=== PATIENT | male | born 1945 | race Caucasian/White ===

== ENCOUNTER → 2017-12-31 | Outpatient (CLI) | payer MEDICARE, OTHER ==
[~2017-12-31] MED LIST: AMLODIPINE BESYL5 M1 PO; ANCEF IV; ASA81BEC PO; AUGMENTIN 500-1 EACH PO; BACTRIM DS TAB1 EACH PO; BRILINTA90 MG PO; CEFAZOLIN 1GM VI1 G1 IV; CEFAZOLIN2 GM/50 ML IV; CIPROFLOXACIN500 M1 PO; EYE DROPS15 M1 OPHTHALMIC; FLONASE NASAL; GLIPIZIDE ER2.5 MG; GLUCOPHAGE1000 MG PO; GLUCOPHAGE500 MG PO; GLUCOTROL10 MG PO; GLUCOTROL5 MG PO; IBUPROFEN 800800 M1 PO; IMDUR 30 MG TAB30 M1 PO; LASIX 80 MG TAB80 MG PO; LEVAQUIN 750 M750 MG PO; LIPITOR 20 MG T20 M1 PO; LIPITOR40 MG PO; LISINOPRIL-HCT1 EACH PO; METFORMIN HCL500 MG; METFORMIN HCL500 MG PO; NAFCILLIN 2 GM A2 G1 IVPB; NORCO 5-325 TA1 EACH PO; PLAVIX 75 MG TA75 M1 PO; PREDNISONE 10 M10 MG PO; SULFA DRUG; TESSALON200 MG PO; TIMOLOL MA0.5 %/5 M2 OPHTHALMIC; TOPROL XL100 MG; TOPROL XL25 MG PO; TRAMADOL 50 MG50 MG PO; TYLENOL325 MG PO; VANCOMYCIN1.25 GM/21 IV; ZESTORETIC 20-1 EAC2 PO
[2017-12-31 12:14] VITALS: BP 159/65
[2017-12-31 12:35] VITALS: BP 151/76
[2017-12-31 12:56] VITALS: BP 152/68
[2017-12-31 14:10] VITALS: BP 159/76
[2017-12-31 15:04] VITALS: BP 144/72
== END | disposition home or self-care (01) ==
LOC: M.RAD 12-25 10:28
DX: M54.5 Low back pain (principal); E11.9 Type 2 diabetes mellitus without complications; Z79.82 Long term (current) use of aspirin; Z79.899 Other long term (current) drug therapy

== ENCOUNTER → 2018-12-07 | Outpatient (CLI) | payer MEDICARE, OTHER | LOC: M.WC 09:00 | DX: E11.622 Type 2 diabetes mellitus with other skin ulcer (principal); L97.811 Non-pressure chronic ulcer of other part of right lower leg limited to breakdown of skin; E11.22 Type 2 diabetes mellitus with diabetic chronic kidney disease; I12.9 Hypertensive chronic kidney disease with stage 1 through stage 4 chronic kidney disease, or unspecified chronic kidney disease; N18.9 Chronic kidney disease, unspecified; E11.51 Type 2 diabetes mellitus with diabetic peripheral angiopathy without gangrene; E11.39 Type 2 diabetes mellitus with other diabetic ophthalmic complication; H40.9 Unspecified glaucoma; E78.5 Hyperlipidemia, unspecified; I87.2 Venous insufficiency (chronic) (peripheral); I89.0 Lymphedema, not elsewhere classified; Z79.82 Long term (current) use of aspirin ==

== ENCOUNTER → 2018-12-14 | Outpatient (CLI) | payer MEDICARE, OTHER | LOC: M.WC 05:45 | DX: E11.622 Type 2 diabetes mellitus with other skin ulcer (principal); L97.811 Non-pressure chronic ulcer of other part of right lower leg limited to breakdown of skin; E11.51 Type 2 diabetes mellitus with diabetic peripheral angiopathy without gangrene; E11.39 Type 2 diabetes mellitus with other diabetic ophthalmic complication; H40.9 Unspecified glaucoma; E11.22 Type 2 diabetes mellitus with diabetic chronic kidney disease; I12.9 Hypertensive chronic kidney disease with stage 1 through stage 4 chronic kidney disease, or unspecified chronic kidney disease; N18.9 Chronic kidney disease, unspecified; E78.5 Hyperlipidemia, unspecified; I87.2 Venous insufficiency (chronic) (peripheral); I89.0 Lymphedema, not elsewhere classified ==

== ENCOUNTER 2019-09-14 11:05 | Inpatient (IN) | payer MEDICARE, OTHER ==
[~2019-09-14] VITALS: Ht 180.3 cm; Wt 125.4 kg
[2019-09-14 11:12] VITALS: BP 156/75
[2019-09-14 11:41] LABS: ABSOLUTE EOSINOPHILS 0.1 thou/uL (0.0-0.7); ABSOLUTE MONOCYTES 0.5 thou/uL (0.0-1.2); ABSOLUTE NEUTROPHILS 7.3 thou/uL (1.6-8.1); BASOPHILS 0.5 %; EOSINOPHILS 1.3 %; HEMOGLOBIN 9.9 gm/dL (14.0-18.0); LYMPHOCYTES 11.3 %; MCH 28.6 pg (26.0-34.0); MCV 86.7 fL (80.0-100.0); MONOCYTES 5.3 %; MPV 8.4 fl. (7.2-11.1); NUCLEATED RBCS 0 /100WBC; PLATELET COUNT* 315 thou/uL (150-400); POLYS 81.6 %; RBC 3.46 mil/uL (4.50-6.00); RDW-CV 15.6 % (10.5-14.5); WBC 8.9 thou/uL (4.0-11.0)
[2019-09-14 11:51] LABS: CALCIUM 8.6 mg/dL (8.5-10.1); CREATININE 1.2 mg/dL (0.6-1.3); INR 1.2; PROTIME 12.2 Seconds (9.20-11.50)
[2019-09-14 12:05] LABS: CK-MB MASS 2.9 ng/mL (<0.5-3.6); MAGNESIUM 1.5 mg/dL (1.8-2.4); TOTAL BILIRUBIN 0.6 mg/dL (<0.1-1.0); TOTAL PROTEIN 7.3 g/dL (6.4-8.2)
[2019-09-14 13:57] VITALS: BP 160/90
--- NOTE | 2019-09-14 14:43 | NUR ---
VSS, ASSUMED CARE OF PT FROM ER, ASSESSMENT PERFORMED AND CHARTED, FALL PRECAUTIONS IN PLACE AND CALL LIGHT IN REACH, PT IS A&O4 AND UP WITH MAX 2 ASSIST, PT IS TRACING SR ON THE MONITOR, PT DENIES ANY PAIN IS N 2L NC AND IS SOA, PT GOAL IS TO DECREASE SWELLING AND IMPROVE BREATHING, WILL FOLLOW WITH PLAN OF CARE.
[2019-09-14 14:46] VITALS: BP 145/64
--- NOTE | 2019-09-14 15:47 | EKG ---
[place] [address] ELECTROCARDIOGRAM REPORT Name: VÍCTOR MCFADDEN Room: [address] ADM IN M.R.#: [id number] Admission: 09/14/19 Attend Phys: Cl Trammell MD Discharge: Date of : 49 Report #: [id number] THIS REPORT FOR: //name// [facility] ED Test Date: 2019-09-14 Test Time: 11:17:08 Pat Name: VÍCTOR MCFADDEN Department: Room: [facility] Gender: M Deputy Sheriff/Investigator: : 1945 Requested By: Morales Harrell Order Number: [id number] MD: Juan R Alcala Measurements Intervals Red Bud Rate: 84 P: -14 ND: 168 QRS: -27 QRSD: 113 T: 65 QT: 404 QTc: 478 Interpretive Statements Sinus rhythm Atrial premature complexes Low voltage, precordial leads Probable anteroseptal infarct, old Baseline wander in lead(s) V1 Compared to ECG 08/08/2017 04:07:33 Atrial premature complex(es) now present Myocardial infarct finding now present Electronically Signed On 09-14-2019 15:47:22 BROILER CHEF OR COOK by Juan R Alcala [email or web address] <ELECTRONICALLY SIGNED> By: Juan R Alcala MD, FACC 09/14/19 1547 [id number] Juan R Alcala MD, [facility] /EPI
[2019-09-14 20:00] VITALS: BP 123/60
[2019-09-15] VITALS: BP 100/52
[2019-09-15 04:00] VITALS: BP 101/60
[2019-09-15 04:36] LABS: ABSOLUTE BASOPHILS 0.1 thou/uL (0.0-0.2); ABSOLUTE EOSINOPHILS 0.4 thou/uL (0.0-0.7); ABSOLUTE LYMPHOCYTES 1.5 thou/uL (0.8-5.3); ABSOLUTE MONOCYTES 0.6 thou/uL (0.0-1.2); ABSOLUTE NEUTROPHILS 5.3 thou/uL (1.6-8.1); BASOPHILS 0.9 %; EOSINOPHILS 4.5 %; HEMATOCRIT 26.3 % (42.0-52.0); HEMOGLOBIN 8.6 gm/dL (14.0-18.0); LYMPHOCYTES 19.3 %; MCH 28.2 pg (26.0-34.0); MCHC 32.6 g/dL (28.0-37.0); MCV 86.7 fL (80.0-100.0); NUCLEATED RBCS 0 /100WBC; PLATELET COUNT* 284 thou/uL (150-400); POLYS 67.3 %; RBC 3.04 mil/uL (4.50-6.00); RDW-CV 15.5 % (10.5-14.5); WBC 7.9 thou/uL (4.0-11.0)
[2019-09-15 04:48] LABS: CALCIUM 8.3 mg/dL (8.5-10.1); CREATININE 1.1 mg/dL (0.6-1.3); POTASSIUM 4.1 mmol/L (3.5-5.1)
--- NOTE | 2019-09-15 07:42 | NUR ---
PT CARE ASSUMED AT 1930. SAT MAINTAINED IN O2. ALERT AND ORIENTED X4. DENIES PAIN. REDNESS ON BOTTON, PICTURE TAKEN AND PLACED IN CHART. CALL LIGHT WITHIN REACH AND BED IN LOW POSITION. HOURLY ROUNDING DONE FOR PT SAFETY.
[2019-09-15 08:00] VITALS: BP 128/72
--- NOTE | 2019-09-15 08:37 | 2DMMODE ---
[place] [address] 2 D/M-MODE ECHOCARDIOGRAM Name: VÍCTOR MCFADDEN Room: [address] IN [facility]#: [id number] Admission: 09/14/19 Attend Phys: Cl Trammell, Discharge: Date of : 49 Date of Service: 09/15/19 0837 Report #: [id number] THIS REPORT FOR: //name// APPROVED REPORT Study performed: 09/14/2019 15:39:25 EXAM: Comprehensive 2D, Doppler, and color-flow Echocardiogram Patient Location: In-Patient Room #: [facility] Status: routine BSA: 2.43 HR: 80 bpm BP: 145/64 mmHg Rhythm: NSR Other Information Study Quality: Good Indications Congenital Heart Disease 2D Dimensions IVSd: 12.33 (7-11mm) LVOT Diam: 20.40 (18-24mm) LVDd: 58.99 mm PWd: 9.91 (7-11mm) Ascending Ao: 35.43 (22-36mm) LVDs: 39.87 (25-40mm) Aortic Root: 36.37 mm Volumes Left Atrial Volume (Systole) LA ESV Index: 26.90 mL/m2 Aortic Valve AoV Peak Obi.: 1.49 m/s AO Peak Gr.: 8.89 mmHg LVOT Max P.77 mmHg AO Mean Gr.: 5.15 mmHg LVOT Mean P.76 mmHg LVOT Max V: 0.97 m/s AO V2 VTI: 26.91 cm LVOT Mean V: 0.60 m/s BREANN (VTI): 2.30 cm2 LVOT V1 VTI: 18.92 cm Mitral Valve E/A Ratio: 1.25 MV Decel. Time: 149.18 ms MV E Max Obi.: 1.05 m/[place] [address] 2 D/M-MODE ECHOCARDIOGRAM Name: VÍCTOR MCFADDEN Room: [address] [place] .R.#: [id number] Admission: 09/14/19 Attend Phys: Cl Trammell, Discharge: Date of : 49 Date of Service: 09/15/19 0837 Report #: [id number] MV PHT: 43.26 ms MVA (PHT): 5.09 cm2 TDI E/Lateral E': 10.50 E/Medial E': 11.67 Medial E' Obi.: 0.09 m/s Lateral E' Obi.: 0.10 m/s Pulmonary Valve PV Peak Obi.: 0.83 m/s PV Peak Gr.: 2.74 mmHg Tricuspid Valve RAP Estimate: 5.00 mmHg TR Peak Gr.: 37.65 mmHg RVSP: 42.00 mmHg PA Pressure: 42.00 mmHg Left Ventricle Left ventricle is mildly dilated. There is akinesis of the distal septum anteroseptal and anterior wall as well as apex. There is normal left ventricular wall thickness. Left ventricular systolic function is moderately decreased. LVEF is 35-40%. Transmitral Doppler flow pattern suggests restrictive physiology. Right Ventricle The right ventricle is normal size. The right ventricular systolic function is normal. Atria Left atrium is mildly dilated. The right atrium size is normal. Aortic Valve Mild aortic valve sclerosis. No aortic regurgitation is present. There is no aortic valvular stenosis. Mitral Valve The mitral valve is normal in structure. Mild mitral regurgitation. No evidence of mitral valve stenosis. Tricuspid Valve The tricuspid valve is normal in structure. Mild tricuspid regurgitation. The RVSP is 40-45 mmHg. Pulmonic Valve The pulmonary valve is normal in structure. There is no pulmonic [place] [address] 2 D/M-MODE ECHOCARDIOGRAM Name: VÍCTOR MCFADDEN Room: [address] [place] [facility]#: [id number] Admission: 09/14/19 Attend Phys: Cl Trammell, Discharge: Date of : 49 Date of Service: 09/15/19 0837 Report #: [id number] Great Vessels The aortic root is normal in size. IVC is normal in size and collapses >50% with inspiration. Pericardium There is no pericardial effusion. <Conclusion> Left ventricle is mildly dilated. There is normal left ventricular wall thickness. Left ventricular systolic function is moderately decreased. LVEF is 35-40%. Transmitral Doppler flow pattern suggests restrictive physiology. Left atrium is mildly dilated. Mild aortic valve sclerosis. There is no aortic valvular stenosis. Mild mitral regurgitation. Mild tricuspid regurgitation. The RVSP is 40-45 mmHg. <ELECTRONICALLY SIGNED> By: Andrea Laboy MD, FACC 09/15/19 0837 Andrea Laboy MD, FACC /INF
--- NOTE | 2019-09-15 10:27 | CON ---
[address] [address] CONSULTATION Name: VÍCTOR MCFADDEN Room: [address] [place] .R.#: [id number] Admission: 09/14/19 Attend Phys: Cl Trammell MD Discharge: Date of : 49 Report #: [id number] THIS REPORT FOR: //name// CC: Cl Lambrina [place] DATE OF SERVICE: 09/14/2019 CARDIOLOGY CONSULTATION The patient of Dr. Trammell. HISTORY OF PRESENT ILLNESS: The patient is a very pleasant 74-year-old male with known coronary artery disease, cardiomyopathy in that context with both systolic and diastolic dysfunction. He was recently seen by Dr. Canela who elected to add Aldactone to his regimen. This was misinterpreted as a substitution of Aldactone for his loop diuretic. Over the ensuing 2-3 weeks, there has been a gradual increase in lower extremity edema and marked notation of dyspnea on exertion. He denies any chest, neck, jaw or arm discomfort suggesting angina in the context of known coronary artery disease. The patient does have a number of underlying risk factors for coronary artery disease including hypertension, type 2 diabetes, peripheral vascular disease. He is status post prior percutaneous coronary intervention. OUTPATIENT MEDICATIONS: Have included aspirin, atorvastatin, glipizide, potassium chloride, metformin, metoprolol, timolol, and torsemide. SOCIAL HISTORY: The patient is a nonsmoker. FAMILY HISTORY: Not remarkable for premature coronary artery disease. REVIEW OF SYSTEMS: Remarkable for the following positives, generally notes a gradual weight gain of 20-30 pounds over the last 3 weeks with marked increase in lower extremity edema. PULMONARY: He notes dyspnea on moderate exertion, but not at rest. Remainder is unremarkable. PHYSICAL EXAMINATION: GENERAL: Demonstrates not acutely distressed, overweight elderly male. VITAL SIGNS: Blood pressure is 140/80, pulse rate is 74, and respirations are 18 per minute. NECK: Jugular venous pressure is difficult to ascertain. CHEST: Clear. CARDIAC: Reveals normal first and second heart sounds with a question of S[place] [address] CONSULTATION Name: VÍCTOR MCFADDEN Room: [address] [place] [facility]#: [id number] Admission: 09/14/19 Attend Phys: Cl Trammell MD Discharge: Date of : 49 Report #: [id number] ABDOMEN: Moderately obese. EXTREMITIES: Reveal [id number]-hn-bvsezrwgpi severe bilateral lower extremity edema. IMPRESSION: 1. Acute on chronic combined heart failure. 2. Coronary artery disease, status post prior percutaneous coronary intervention. 3. Type 2 diabetes. 4. Hypertension. 5. Peripheral vascular disease. 6. Status post prior percutaneous coronary intervention. RECOMMENDATIONS: 1. Agree with parenteral diuresis. We will continue Aldactone. 2. Echocardiogram regarding current global systolic function as well as diastolic function and volume status. We will follow with you. Thank you for allowing us to see the patient in cardiovascular assessment. <ELECTRONICALLY SIGNED> By: Juan R Alcala MD, FACC 09/15/19 1027 1520 [id number] Alcala MD, FACC /nt
--- NOTE | 2019-09-15 11:20 | NUR ---
Pt is A&O. Resides at home with his . Independent with ADLs, available to assist as needed. Pt uses a walker for mobility. Hx of HH. No hx of SNF. Pt is current at outpt rehab at [facility] post back surgery. Goal is home at sd.
[2019-09-15 12:11] VITALS: BP 154/56
--- NOTE | 2019-09-15 12:54 | NUR ---
Nutrition: Pt seen for high BMI. Admitted with SOA. H/o CHF, DM, foot ulcer, HTN. Pt sleeping soundly at visit. 2gm Na diet. Wt: 292#. Albumin 2.3, BG 208. Altered nutrition-related lab values R/T BG AEB labs. RD will add CHO count to diet order for better BG control. Low risk.
[2019-09-15 16:00] VITALS: BP 116/60
--- NOTE | 2019-09-15 19:00 | NUR ---
PT VSS, PT V-PACED ON TELE, A&OX4, PT ON BIPAP. SBA, VOIDS IN URINAL, HOURLY ROUNDING PERFORMED. POSSESSIONS AND CALL LIGHT WITHIN REACH. ACCUCHECKS
[2019-09-15 19:55] VITALS: BP 145/81
[2019-09-16] VITALS: BP 144/79
[2019-09-16 04:00] VITALS: BP 139/69
--- NOTE | 2019-09-16 04:52 | NUR ---
ASSUMED CARE OF PT AT 1900. PT IS ALERT AND ORIENTED. VSS. PERRLA. NO COMPLAINTS OF PAIN. PT IS INCONTINANT AT TIMES. PT HAS EDEMA IN HIS LOWER EXT. BLISTERS ON SHINS. PT IS IN SINUS RYTHM ON THE TELEMETRY. PT IS RESTING COMFORTABLY IN BED. RESPIRATIONS ARE EVEN AND NONLABORED. WILL CONTINUE TO MONITOR PT.
[2019-09-16 04:59] LABS: ABSOLUTE BASOPHILS 0.1 thou/uL (0.0-0.2); ABSOLUTE EOSINOPHILS 0.3 thou/uL (0.0-0.7); ABSOLUTE LYMPHOCYTES 1.5 thou/uL (0.8-5.3); ABSOLUTE MONOCYTES 0.7 thou/uL (0.0-1.2); ABSOLUTE NEUTROPHILS 6.1 thou/uL (1.6-8.1); BASOPHILS 0.7 %; EOSINOPHILS 3.9 %; HEMATOCRIT 30.7 % (42.0-52.0); HEMOGLOBIN 9.9 gm/dL (14.0-18.0); LYMPHOCYTES 17.1 %; MCH 28.2 pg (26.0-34.0); MCHC 32.3 g/dL (28.0-37.0); MCV 87.3 fL (80.0-100.0); MONOCYTES 7.6 %; MPV 8.7 fl. (7.2-11.1); NUCLEATED RBCS 0 /100WBC; PLATELET COUNT* 298 thou/uL (150-400); POLYS 70.7 %; RBC 3.52 mil/uL (4.50-6.00); RDW-CV 15.8 % (10.5-14.5); WBC 8.6 thou/uL (4.0-11.0)
[2019-09-16 05:52] LABS: CALCIUM 8.4 mg/dL (8.5-10.1); CREATININE 1.2 mg/dL (0.6-1.3); POTASSIUM 4.2 mmol/L (3.5-5.1)
[2019-09-16 08:00] VITALS: BP 139/81
[2019-09-16 11:33] VITALS: BP 136/71
[2019-09-16 16:56] VITALS: BP 153/86
[2019-09-16 19:25] VITALS: BP 135/66
--- NOTE | 2019-09-16 20:06 | NUR ---
PT VSS, PT SR ON TELE, A&OX4, PATIENT UW1 AND WALKER TO PIVOT TO CHAIR. USES URINAL TO VOID. HOURLY ROUNDING PERFORMED, POSSESSIONS AND CALL LIGHT WITHIN REACH.
[2019-09-17] VITALS: BP 149/73
[2019-09-17 04:00] VITALS: BP 135/62
[2019-09-17 05:24] LABS: ABSOLUTE BASOPHILS 0.1 thou/uL (0.0-0.2); ABSOLUTE EOSINOPHILS 0.3 thou/uL (0.0-0.7); ABSOLUTE LYMPHOCYTES 1.3 thou/uL (0.8-5.3); ABSOLUTE MONOCYTES 0.7 thou/uL (0.0-1.2); ABSOLUTE NEUTROPHILS 5.3 thou/uL (1.6-8.1); BASOPHILS 0.7 %; EOSINOPHILS 3.9 %; HEMATOCRIT 27.5 % (42.0-52.0); HEMOGLOBIN 9.2 gm/dL (14.0-18.0); LYMPHOCYTES 17.4 %; MCH 28.6 pg (26.0-34.0); MCHC 33.4 g/dL (28.0-37.0); MCV 85.8 fL (80.0-100.0); MONOCYTES 9.5 %; MPV 8.2 fl. (7.2-11.1); NUCLEATED RBCS 0 /100WBC; PLATELET COUNT* 292 thou/uL (150-400); POLYS 68.5 %; RBC 3.21 mil/uL (4.50-6.00); RDW-CV 15.8 % (10.5-14.5); WBC 7.7 thou/uL (4.0-11.0)
[2019-09-17 05:52] LABS: CALCIUM 8.4 mg/dL (8.5-10.1); CREATININE 1.2 mg/dL (0.6-1.3); POTASSIUM 4.1 mmol/L (3.5-5.1)
[2019-09-17 08:00] VITALS: BP 166/86
[2019-09-17 12:47] VITALS: BP 130/60
[2019-09-17 16:00] VITALS: BP 128/62
--- NOTE | 2019-09-17 19:17 | NUR ---
PT VSS, SR ON TELE, PT UP WITH 2, USES URINAL & BEDSIDE COMMODE, HOURLY ROUNDING PERFORMED, POSSESSIONS AND CALL LIGHT WITHIN REACH. A&OX4
[2019-09-17 20:38] VITALS: BP 143/70
[2019-09-18] VITALS: BP 150/76
[2019-09-18 04:00] VITALS: BP 133/67
--- NOTE | 2019-09-18 05:03 | NUR ---
PT IS ABLE TO COMMUNICATE HIS NEEDS TO STAFF EFECTIVELY. HE HAS DENIED THE NEED FOR PAIN MEDICATION UP TO THIS TIME. PT QUITE WEAK; REQUIRES TWO STAFF MEMBERS TO STAND AND MOVE WHILE USING WALKER ALSO; PT CONSULTED.
[2019-09-18 05:41] LABS: CALCIUM 7.8 mg/dL (8.5-10.1); CREATININE 1.3 mg/dL (0.6-1.3)
[2019-09-18 08:00] VITALS: BP 157/82
[2019-09-18 14:03] VITALS: BP 125/79
[2019-09-18 16:28] VITALS: BP 135/59
[2019-09-18 20:00] VITALS: BP 118/47
[2019-09-19] VITALS: BP 131/66
[2019-09-19 04:00] VITALS: BP 142/74
[2019-09-19 05:42] LABS: CALCIUM 8.1 mg/dL (8.5-10.1); CREATININE 1.2 mg/dL (0.6-1.3); POTASSIUM 3.7 mmol/L (3.5-5.1)
--- NOTE | 2019-09-19 05:42 | NUR ---
PT UP THROUGH OUT NIGHT D/T IV DIURETICS, PT UNABLE TO USE URINAL BY HIMSELF. NO C/O PAIN OR DISCOMFORT NOTED BY PT. CURRENTLY ASLEEP IN BED WITH BED ALRAM ON AND CALL LIGHT WITHIN REACH.
[2019-09-19 08:00] VITALS: BP 151/88
--- NOTE | 2019-09-19 11:03 | NUR ---
Pt did not do well with therapies yesterday, rehab consult placed, Dr Lyle to see Pt today. Pt medically stable to dc. Awaiting decision to accept. Following.
[2019-09-19] MEDS ORDERED: VITAMIN B-121000 MC3 PO (11:16)
[2019-09-19] MEDS ORDERED: DEMADEX20 MG PO (11:19)
[2019-09-19] MEDS ORDERED: LISINOPRIL2.5 MG PO (11:22)
[2019-09-19] MEDS ORDERED: SPIRONOLACTONE25 MG PO (11:23)
--- NOTE | 2019-09-19 14:34 | NUR ---
Pt discharging to acute rehab today after 3pm. Left VM for Pt's to inform of dispo.
== END 2019-09-19 16:42 | DRG 291 ==
LOC: M.ERS 11:05 → M.2W 13:07 → M.TBA-ER 13:07 → M.2W 13:57
PROVIDERS: Family Medicine; Internal Medicine; ADMIT Internal Medicine
DX: I11.0 Hypertensive heart disease with heart failure (principal); J96.01 Acute respiratory failure with hypoxia; N17.9 Acute kidney failure, unspecified; I50.43 Acute on chronic combined systolic (congestive) and diastolic (congestive) heart failure; I42.9 Cardiomyopathy, unspecified; E78.00 Pure hypercholesterolemia, unspecified; H40.9 Unspecified glaucoma; E11.51 Type 2 diabetes mellitus with diabetic peripheral angiopathy without gangrene; I25.10 Atherosclerotic heart disease of native coronary artery without angina pectoris; D64.9 Anemia, unspecified; I25.5 Ischemic cardiomyopathy; I87.8 Other specified disorders of veins; E78.5 Hyperlipidemia, unspecified; E66.9 Obesity, unspecified; L89.90 Pressure ulcer of unspecified site, unspecified stage; Z89.412 Acquired absence of left great toe; Z79.84 Long term (current) use of oral hypoglycemic drugs; Z79.82 Long term (current) use of aspirin; Z79.899 Other long term (current) drug therapy; Z68.39 Body mass index [BMI] 39.0-39.9, adult; Z87.01 Personal history of pneumonia (recurrent); Z23 Encounter for immunization

== ENCOUNTER 2019-09-19 14:12 | Inpatient (IN) | payer MEDICARE, OTHER ==
[~2019-09-19] VITALS: Ht 180.3 cm; Wt 118.2 kg
[~2019-09-19 14:12] MED LIST changes: +DEMADEX20 MG PO; +LISINOPRIL2.5 MG PO; +SPIRONOLACTONE25 MG PO; +VITAMIN B-121000 MC3 PO
--- NOTE | 2019-09-19 17:21 | NUR ---
PT A&O. VSS. GETS UP WITH ASSIST X1, MAX ASSIST. WALKED FEW STEPS IN THE ROOM WITH PT. VOIDING PER URINAL. REPORT GIVEN TO EMILY OROZCO, IN REHAB. AWARE ABOUT THE ADMISSION IN REHAB.
[2019-09-19 20:00] VITALS: BP 115/70
--- NOTE | 2019-09-19 20:03 | NUR ---
I ASSUMED CARE OF THE PATIENT FROM TELEMETRY. HE IS ALERT AND ORIENTED X4 AND IS UP WITH SBA OF 2, GB, WALKER. BED IS IN THE LOW LOCKED POSITION AND CALL LIGHT IS IN REACH. PATIENT NEEDS ARE MET AND HOURLY ROUNDING IS COMPLETED. PAIN IS DENIED. ORDERS WERE ENTERED, MEDS WERE RECONCILED AND PHYSICIAN WAS NOTIFIED OF ARRIVAL. PATIENT DID HAVE AN ACCIDENT BUT SAYS IT IS BECAUSE OF THE LASIX. BOTTOM HAS A RED SPOT, BUT NOT OPEN. WILL CONTINUE TO MONITOR.
[2019-09-20 04:36] LABS: ABSOLUTE EOSINOPHILS 0.3 thou/uL (0.0-0.7); ABSOLUTE LYMPHOCYTES 1.2 thou/uL (0.8-5.3); ABSOLUTE MONOCYTES 0.8 thou/uL (0.0-1.2); ABSOLUTE NEUTROPHILS 5.1 thou/uL (1.6-8.1); BASOPHILS 0.5 %; EOSINOPHILS 4.7 %; HEMATOCRIT 27.2 % (42.0-52.0); HEMOGLOBIN 9.1 gm/dL (14.0-18.0); LYMPHOCYTES 15.4 %; MCH 28.4 pg (26.0-34.0); MCHC 33.3 g/dL (28.0-37.0); MCV 85.2 fL (80.0-100.0); MONOCYTES 10.8 %; MPV 8.2 fl. (7.2-11.1); NUCLEATED RBCS 0 /100WBC; PLATELET COUNT* 309 thou/uL (150-400); POLYS 68.6 %; RBC 3.19 mil/uL (4.50-6.00); RDW-CV 15.7 % (10.5-14.5); WBC 7.5 thou/uL (4.0-11.0)
[2019-09-20 04:46] LABS: CALCIUM 8.1 mg/dL (8.5-10.1); CREATININE 1.4 mg/dL (0.6-1.3); POTASSIUM 3.7 mmol/L (3.5-5.1)
--- NOTE | 2019-09-20 05:39 | NUR ---
ASSUMED CARES AT 1920. ALERT AND ORIENTED. PLEASANT. PLACED ON O2 2L NC DUE TO O2 SATS IN 80'S. PT USES URINAL BUT IS FOUND TO HAVE URINARY ACCIDENTS. PT SAYS THAT HE SPILLS HIS URINAL. NEEDED ASSIST WITH ALL CARES. HAS OPEN AREA TO BUTTOCK. BARRIER CREAM APPLIED. PIC TAKEN. PT TURNED ONTO SIDES IN BED. SLEPT OFF AND ON. CALL LIGHT IN REACH AND BED ALARM ON.
[2019-09-20 07:06] LABS: URINE CLARITY ND; URINE COLOR ND; URINE SPECIFIC GRAVITY ND (1.005-1.030)
[2019-09-20 07:07] LABS: URINE GLUCOSE-RANDOM ND (Negative); URINE KETONES ND (Negative); URINE PROTEIN ND (Negative)
[2019-09-20 07:08] LABS: URINE BILIRUBIN ND (Negative); URINE BLOOD ND (Negative); URINE NITRITE ND (Negative); URINE UROBILINOGEN ND E.U./dl (0.2-1.0)
[2019-09-20 07:09] LABS: SQUAMOUS ND /LPF (0-3); URINE LEUKOCYTES ND (Negative); URINE RBC ND /HPF (0-2); URINE WBC ND /HPF (0-5)
[2019-09-20 07:10] LABS: BACTERIA ND /HPF (None Seen); CASTS ND /LPF (None Seen); CRYSTALS ND /LPF (None Seen)
[2019-09-20 08:00] VITALS: BP 142/74
--- NOTE | 2019-09-20 12:54 | NUR ---
Nutrition: Consult for DM educ. Spoke with pt's today. He has had DM educ in past. She stated he is noncompliant b/c "he is too headstrong." She tries to help him eat healthier but he doesn't like to listen. H/o DM, foot ulcer, CHF. Wt: 282#. CHO controlled diet with fluid restirction is ordered. BG 200s, alb 3, BUN 22, cr 1.4. Discussed CHO sources and plate method with . Left handouts and RD contact info with her. She stated she'd try to follow it at home. RD expects fair compliance. Low risk.
[2019-09-20 15:13] LABS: URINE BILIRUBIN NEGATIVE (Negative); URINE BLOOD NEGATIVE (Negative); URINE CLARITY CLEAR; URINE COLOR YELLOW; URINE GLUCOSE-RANDOM NEGATIVE (Negative); URINE KETONES NEGATIVE (Negative); URINE LEUKOCYTES-REFLEX NEGATIVE (Negative); URINE NITRITE-REFLEX NEGATIVE (Negative); URINE PROTEIN NEGATIVE (Negative); URINE UROBILINOGEN 0.2 E.U./dl (0.2-1.0)
--- NOTE | 2019-09-20 15:41 | NUR ---
SW met with pt to complete initial assessment, introduce self, and SW role on inpt rehab. Pt alert, oriented. Pt lives at home with his . Pt was previously independent with ADLs. Pt uses [facility] and has other DME as well. Pt has hx of HH and OP therapies. Pt said he would want to go to [facility] OP therapy clinic as opposed to returning to [facility] OP, pt said that [facility] would be closer to his home/better drive. No pt or family concerns presented at this time. SW to continue to follow to assist with safe dc planning.
--- NOTE | 2019-09-20 16:10 | NUR ---
ASSUMMED CARE OF PT AT 0730, PT DENIES PAIN, TRANSFERS WITH ASSIST OF 2, GB CUEING, NEEDED LIFTING ASSIST THIS AM BUT ABLE TO PUSH UP AND STAND THIS PM, PT CALLS FOR HELP WITH URINAL BUT VOIDS BEFORE STAFF ABLE TO ASSIST, PT DENIES HISTORY OF URGENCY BUT STATES HE HAS HAD PROBLEMS AT HOME, PT ON O2 THIS AM SATS OF 96% ON 2 L, REMOVED LATER IN DAY AND SATS OF 93 % ON RA, TAKING FOOD AND FLUIDS WELL, LE SWELLING, ELEVATED, TO HAVE US OF LE DONE THIS PM, MAINTAINING FLUID RESTRICTION, TAKING FOOD AND FLUIDS WELL, WD CARE HERE TO SEE PT, PT IN THERAPY, WD NURSE WILL SEE TOMORROW, UA/UC SENT TO LAB, PARTICIPATED IN ALL THERAPIES, HOURLY ROUNDING COMPLETED, REPOSTIONED EVERY 2 HOURS, ASSESSMENT COMPLETE, WILL CONTINUE TO MONITOR.
[2019-09-20 20:19] VITALS: BP 134/60
[2019-09-21 08:36] VITALS: BP 143/71
--- NOTE | 2019-09-21 15:45 | NUR ---
NAKIA and Dr Lyle met with pt to review team conference summary and plan for pt to remain on inpt rehab unit at least another week with team to reassess pt length of stay during team conference next Thursday. Pt in agreement with plan. SW to continue to follow to assist with safe dc planning.
--- NOTE | 2019-09-21 15:46 | NUR ---
WOUND CARE NOTE: CONSULT RECEIVED FOR OPEN WOUND TO LEFT BUTTOCK, ALSO CONCERN FOR LEFT FOOT PER PATIENT'S RN. LEFT FOOT 1ST METATARSAL HEAD, PLANTAR SURFACE: HEALING DFU. PATIENT STATES HE HAS SEEN DR. GRIMALDO FOR THIS. AREA IS CALLUSED. NO OPENING AT THIS TIME, BUT IS SHADOWED, MAY BE AN ULCERATION UNDER THE CALLUS. WOULD RECOMMEND FOLLOWING UP WITH DR. GRIMALDO UPON DISCHARGE. BILATERAL BUTTOCKS: MULTIPLE PARTIAL THICKNESS LESIONS, HEALING, DRY. SACRAL AREA IS DISCOLORED, BELIEVE PATIENT HAS SAT A LOT, DISCOLORING HIS SKIN. AFTER CLEANSING, APPLIED BARRIER OINTMENT. EDUCATED PATIENT ON FINDINGS, COMMUNICATED PLAN OF CARE. COMMUNICATED UNDERSTANDING. RECOMMEND BARRIER OINTMENT BID AND PRN TO SACRAL/COCCYX/BUTTOCKS MONITOR LEFT FOOT CALLUS CLOSELY FOR ANY S/S OF INFECTION TURN Q2 HOURS, WAFFLE CUSHION WHEN IN CHAIR.
--- NOTE | 2019-09-21 16:41 | NUR ---
pt has participated with therapies and transferrs with assist of 2 with queing,walker and gaitbelt to commode and has had large bm's x2 this afternoon.pt has been inc of bladder with breif and pants changed. pt is alert and orientated.pt denies pain. barrier cream applied to buttox.
--- NOTE | 2019-09-21 18:44 | NUR ---
PT VOIDED 150ML WITH SCAN 100ML.
[2019-09-21 19:30] VITALS: BP 141/58
--- NOTE | 2019-09-22 01:59 | NUR ---
ASSUMED CARE @ 1942-09/21-THU.AWAKE IN BED WATCHING TV W/ HOB UP.BED ALARM ON ALREADY @ 1942.HEELS OFF BED.MOISTURE BARRIER CREAM APPLIED TO PINK/RED BUTTOCKS @ 2199.AT 2199-SCANTY BLEEDING FROM TINY SCRATCH CHAN X2 LEFT GROIN NOTED.CLEANSED.ABD PAD APPLIED.ON HOURLY ROUNDS.VIDEO SPECIALIST DOING ODD HOUR ROUNDS.
--- NOTE | 2019-09-22 05:21 | NUR ---
SLEEPING SINCE 2300 & SLEPT GOOD ALL NIGHT.USED URINAL W/ ASSIST X2.USED URINAL BY SELF X2.SPILLED URINAL X1.BED PAD CHANGED X1.SULY CARE X2.REFUSED HS SNACK.
[2019-09-22 07:57] VITALS: BP 132/81
--- NOTE | 2019-09-22 18:34 | NUR ---
PATIENT RESTING UP IN CHAIR. PATIENT IS UP WITH MODERATE TO MAX ASSIST WITH 1-2 PEOPLE FOR TRANSFERS. PATIENT IS INCONTINENT AT TIMES. PATIENT DENIES ANY PAIN. PATIENT HAS GOOD APPETITE. PATIENT DENIES ANY NEEDS AT THIS TIME. CALL LIGHT WITHIN REACH.
[2019-09-22 19:41] VITALS: BP 140/69
--- NOTE | 2019-09-22 20:20 | NUR ---
SITTING UP IN CHAIR AT SHIFT CHANGE AND INCONTINENT OF URINE. SULY CARE GIVEN. PENIS SLIGHTLY RED. APPLIED MOISTURE BARRIER CREAM. TRANSFERRED TO BED WITH ASSIST OF 2 FOR SAFETY BUT PATIENT WAS ABLE TO GET FROM SITTING TO STANDING WITHOUT ASSISTANCE. ENCOURAGED PATIENT TO CALL FOR ASSIST WHEN NEEDS TO USE THE URINAL. DENIES DISCOMFORT. SNACK PROVIDED. CALL LIGHT WITHIN REACH.
--- NOTE | 2019-09-23 05:38 | NUR ---
CALLED FOR ASSIST DURING THE NIGHT FOR ASSIST WITH URINAL. HOURLY ROUNDING IN PROGRESS.
[2019-09-23 08:27] VITALS: BP 147/79
[2019-09-23 09:08] LABS: CALCIUM 8.6 mg/dL (8.5-10.1); CREATININE 1.4 mg/dL (0.6-1.3); POTASSIUM 3.6 mmol/L (3.5-5.1)
--- NOTE | 2019-09-23 15:33 | NUR ---
PT HAS WORKED WITH THERAPIES AND TRANSFERRS WITH MOD ASSIST OF 1,GAITBELT AND WALKER WITH QUEING. PT USEING URINAL WITH PLACEMENT ASSIST REQUESTED AT TIMES BUT REFUSES COLACE AND MIRALAX WITH NO BM TODAY.PT DENIES NEED FOR PAIN MEDICATION AND REMAINS ALERT AND ORIENTATED. PT GIVEN SNACK THIS AFTERNOON WITH BG BEING LOWER TODAY.
[2019-09-23 20:17] VITALS: BP 155/73
--- NOTE | 2019-09-24 06:44 | NUR ---
ASSUMED PATIENT CARE AT 1900. PATIENT ALERT AND ORIENTED TIMES FOUR. NO COMPLAINTS OF PAIN OR DISCOMFORT NOTED. ABLE TO USE URINAL INDEPENDENTLY IN BED WITH LIMITED SUCCESS. STATES THAT HE IS FEELING BETTER AND THAT IT IS GETTING EASIER FOR HIM TO MOVE AROUND. FALL RISK PRECAUTIONS IN PLACE. WATER FILTERER HELPER AND HOURLY ROUNDING COMPLETED CHARTED
[2019-09-24 07:46] VITALS: BP 132/79
--- NOTE | 2019-09-24 14:36 | NUR ---
pt incontinent of bowel and urine this afternoon. stated it came on all of a sudden. pt cleansed and pants changed. pt able to stand with use of walker and ambulate from w/c to commode and back with min assist and queing.pt is alert and orientated but does not call for assist for voiding. pt assisted with holding urinal at times to prevent incontinence.
[2019-09-24 20:21] VITALS: BP 152/64
--- NOTE | 2019-09-25 01:39 | NUR ---
ASSUMED CARE @ -SAT.APPEARS SLEEPING IN BED ON SEMI-GRAVES'S.BED ALARM ALREADY ON @ 1939.AWAKE @ 2014.HEELS OFF BED @ 2114.PULL UPS OFF @ 2129.INC URINE @ 2129.MOISTURE BARRIER CREAM APPLIED TO LEFT BUTTOCK @ 2129. POSITION WEDGES USED FOR TURNING.GETS FATIGUE.URINAL W/IN REACH.ON HOURLY ROUNDS.PRINTING MECHANIST DOING ODD HOUR ROUNDS.
--- NOTE | 2019-09-25 05:29 | NUR ---
SLEPT EARLY @ 1940 & SLEPT GOOD ALL NIGHT.TOOK VANILLA ICE CREAM & RAINBOW SHERBET HS SNACKS.USED URINAL X4.CALLED FOR ASSIST X2 & USED URINAL BY SELF X2.INC.URINE X1.NOTED SCANTY BLEEDING FROM LEFT SCROTUM DUE TO SCRATCHES.ABD PAD APPLIED.SPILLED URINE X1.SULY CARE X2.
[2019-09-25 07:46] VITALS: BP 131/70
--- NOTE | 2019-09-25 16:18 | NUR ---
pt has been inc of bladder with urgency and asks for assist with standing to void and change pants. ricki care given and barrier cream applied to buttox.pt has not worn breif part of day to help healing of buttox.pt repositions self in w/c and has participated with therapies. pt remains alert and orientated.
[2019-09-25 19:30] VITALS: BP 137/63
--- NOTE | 2019-09-26 01:03 | NUR ---
ASSUMED CARE @ 1914-09/25-THURSDAY.SITS IN W/C IN ROOM WATCHING BALL GAME.CHAIR ALARM ALREADY ON @ 1914.ORAL FLUIDS LIMITED.WANTS TO STAY UP LATE UNTIL BALL GAME OVER.ASSISTED TO BED W/ 2 PERSONS @ 2299.PULL UPS OFF @ .MOISTURE BARRIER CREAM APPLIED TO LEFT BUTTOCK-DRY ABRASIONS @ 2299.BED ALARM PUT ON @ 2314.HEELS OFF BED.WEDGES USED FOR TURNING.ON HOURLY ROUNDS.INTRAMURAL DIRECTOR DOING ODD HOUR ROUNDS.
--- NOTE | 2019-09-26 05:24 | NUR ---
SLEPT LATE SINCE 0000-09/26-THURSDAY.SLEPT GOOD ALL NIGHT.AWAKENED TO TURN. USED URINAL X2.SPILLED URINE X2.SULY CARE X2.TOOK BLACK COFFEE HS SNACK.
[2019-09-26 07:49] VITALS: BP 146/68
--- NOTE | 2019-09-26 16:52 | NUR ---
ASSUMMED CARE OF PT AT 0730, PT ALERT AND ORINETED, TRANSFERS WITH MOD ASSIST GB WALKER. NEEDS ASSIST TO HELP LIFT, PROPELS W/C DOWN HALLWAY, PT REPOSTIONED EVERY 2 HOURS, BARRIER OINTMENT APPLIED TO BUTTOCKS, PT MAINTAINING FLUID RESTRICTION, SLIGHT EDEMA IN ANKLES, LEGS ELEVATED WHEN IN BED, HEELS OFF BED, VOIDS PER URINAL BUT DOES SPILL URINAL AT TIMES, PARTICIPATED IN ALL THERAPIES, HAD LUNCH IN DININGROOM, HOURLY ROUNDING COMPLETED, ASSESSMENT COMPLETE, WILL CONTINUE TO MONITOR.
[2019-09-26 19:30] VITALS: BP 151/67
--- NOTE | 2019-09-27 05:31 | NUR ---
ASSUMED CARES AT 1920. ALERT AND ORIENTED. PLEASANT. DENIED ANY PAIN. MOD ASSIST WITH GAIT BELT AND WALKER. NEEDS ASSIST WITH LEGS INTO BED. BARRIER CREAM APPLIED TO BUTTOCKS. USED URINAL BUT DID SPILL X 1. SLEPT OFF AND ON. CALL LIGHT IN REACH AND BED ALARM ON.
[2019-09-27 06:07] LABS: ABSOLUTE EOSINOPHILS 0.4 thou/uL (0.0-0.7); ABSOLUTE LYMPHOCYTES 1.2 thou/uL (0.8-5.3); ABSOLUTE MONOCYTES 0.6 thou/uL (0.0-1.2); ABSOLUTE NEUTROPHILS 4.4 thou/uL (1.6-8.1); BASOPHILS 0.6 %; EOSINOPHILS 6.5 %; HEMATOCRIT 27.9 % (42.0-52.0); HEMOGLOBIN 9.4 gm/dL (14.0-18.0); LYMPHOCYTES 18.1 %; MCH 28.5 pg (26.0-34.0); MCHC 33.6 g/dL (28.0-37.0); MCV 84.8 fL (80.0-100.0); MONOCYTES 8.3 %; MPV 7.4 fl. (7.2-11.1); NUCLEATED RBCS 0 /100WBC; PLATELET COUNT* 278 thou/uL (150-400); POLYS 66.5 %; RDW-CV 15.8 % (10.5-14.5); WBC 6.7 thou/uL (4.0-11.0)
[2019-09-27 06:21] LABS: CALCIUM 9.2 mg/dL (8.5-10.1); CREATININE 1.2 mg/dL (0.6-1.3); MAGNESIUM 1.6 mg/dL (1.8-2.4); POTASSIUM 3.8 mmol/L (3.5-5.1)
[2019-09-27 08:00] VITALS: BP 146/76
--- NOTE | 2019-09-27 16:20 | NUR ---
ASSUMMED CARE OF PT AT 0730, PT ALERT AND ORIENTED, PT TRANSFERS WITH MIN/MOD ASSIST GB WALKER, DOES NEED SOME LITING ASSIST TO GO FROM LAYING IN BED TO SITTING ON SIDE OF BED, PT DENIES PAIN, PT MAINTAINING FLUID RESTRICTION, PT VOIDS PER URINAL, APETITE GOOD, PARTICIPATED IN ALL THERAPIES, HOURLY ROUNDING COMPLETED, ASSESSMENT COMPLETE, WILL CONTINUE TO MONITOR.
[2019-09-27 20:00] VITALS: BP 148/64
--- NOTE | 2019-09-28 05:24 | NUR ---
ASSUMED CARES AT 1920. ALERT AND ORIENTED. PLEASANT. MIN ASSIST WITH GAIT BELT AND WALKER. USED URINAL. BARRIER CREAM TO BUTTOCK. SLEPT WELL. CALL LIGHT IN REACH AND BED ALARM ON.
[2019-09-28 08:00] VITALS: BP 108/66
--- NOTE | 2019-09-28 12:25 | NUR ---
AM ASSESSMENT AND VITAL SIGNS COMPLETED DOCUMENTED. PT HAS BEEN PLEASANT AND COOPERATIVE, PARTICIPATING IN ALL THERAPIES. PT WAS ABLE TO GET OUT OF BED AND TRANSFER TO A CHAIR WITH CONTACT GUARD ASSISTANCE AND VERBAL CUES. PT HAS BEEN CONTINENT OF BOWEL AND BLADDER, REQUIRES SUPERVISION TO NOT SPILL THE URINAL. FALL PRECAUTIONS AND HOURLY ROUNDING CONTINUE.
--- NOTE | 2019-09-28 17:07 | NUR ---
SW and Dr Lyle met with pt and pt to review team conference summary and plan for pt to remain on rehab unit another week to reassess with likely dc next Thursday after team 10/05. FT to be scheduled with pt prior to dc. Pt and pt in agreement with plan. SW to continue to follow to assist with safe dc planning.
[2019-09-28 19:48] VITALS: BP 130/69
--- NOTE | 2019-09-29 01:37 | NUR ---
ASSUMED CARE @ [id number]/4-WED.SITS IN W/C WATCHING TV ON HOSP GOWN ALREADY. 2 PERSON ASSIST TO PULL UP FROM SITTING TO STANDING POSITION.HOB UP IN BED. ORAL FLUIDS LIMITED.MOISTURE BARRIER CREAM APPLIED TO BUTTOCKS @ 2206 AFTER CLEANING & DRYING WELL.HEELS OFF BED @ 2206.BED ALARM PUT ON @ 2206.URINAL W/IN REACH.ON HOURLY ROUNDS.
--- NOTE | 2019-09-29 05:43 | NUR ---
SLEPT LAte since 2300 & SLEPT GOOD ALL NIGHT.AWAKE @ 0100 & 0300.VOIDED @ THESE TIMES W/OUT CALLING FOR ASSIST.USED URINAL X3-0NCE W/ ASSIST & TWICE W/OUT ASSIST.SPILLED URINE X1 @ 0300.SULY CARE GIVEN 2X.MOISTURE BARRIER CREAM APPLIED ALSO TO GROINS & PERINEAL AREAS X2.TOOK ALL POTATO CHIPS & 120 ML APPLE JUICE HS SNACKS.
[2019-09-29 08:10] VITALS: BP 148/58
--- NOTE | 2019-09-29 15:28 | NUR ---
ASSUMMED CARE OF PT AT 0730, PT ALERT AND ORIENTED, PT TRANSFERS WITH MIN/MOD ASSIST, GB WALKER, NEEDS LIFTING ASSIST FROM LYING IN BED TO SITTING ON EDGE OF BED, LEANNE LE EDEMA, FLUID RESTRICTION MAINTAINED, BARRIER OINTMENT APPLIED TO BUTTOCKS, PT ENCOURAGED TO REPOSITION IN CHAIR, HAD LUNCH IN DININGROOM, DENIES PAIN, PARTICIPATED IN ALL THERAPIES, HOURLY ROUNDING COMPLETED, ASSESSMENT COMPLETE, WILL CONTINUE TO MONITOR.
--- NOTE | 2019-09-29 15:51 | NUR ---
WOUND CARE NOTE: REASSESSMENT ABRASION TO LEFT BUTTOCK IS RESOLVING, DRY, FLAKING WITH NEW EPITHELIUM. RECOMMEND USING BARRIER OINTMENT BID AND PRN. WILL SIGN OFF AT THIS TIME, PLEASE RECONSULT IF NEEDED.
[2019-09-29 19:48] VITALS: BP 139/59
--- NOTE | 2019-09-30 06:03 | NUR ---
Pt up in recliner until almost midnight. Reports he slept well overnight. Assisted to W/C this am per pt request. Last night shortly before he went to bed, pt reports that he was scratching his scrotum and noticed bleeding when he wiped with a white washcloth. Small abrasion noted near where pt states he had been scratching. Magdalena care given and barrier cream applied. Pt denies any further complaints. VSS. Will continue to monitor.
[2019-09-30 08:10] VITALS: BP 142/60
--- NOTE | 2019-09-30 18:15 | NUR ---
AM ASSESSMENT AND VITAL SIGNS COMPLETED DOCUMENTED. PT CONTINUES TO WORK WITH THERAPIES AND IS PROGRESSING TOWARD DISCHARGE GOALS. PT FEEDS HIMSELF AND USES THE URINAL WITH ASSISTANCE. PT HAS HAD NO COMPLAINTS OF PAIN THIS SHIFT. FALL PRECAUTIONS AND HOURLY ROUNDING CONTINUE.
[2019-09-30 20:00] VITALS: BP 120/64
--- NOTE | 2019-10-01 05:29 | NUR ---
ASSUMED CARES AT 1920. ALERT AND ORIENTED. PLEASANT. DENIED ANY NEED FOR PAIN MEDS. MIN ASSIST WITH GAIT BELT AND WALKER. PULLUPS. STRESS INCONTINENCE NOTED. SPILLS URINAL WELL. PT NEEDED MUCH ASSIST WITH PERICARES AND CHANGING. BARRIER CREAM APPLIED TO GROIN AND BUTTOCKS. SLEPT MOST OF THE NIGHT. CALL LIGHT IN REACH AND BED ALARM.
[2019-10-01 08:00] VITALS: BP 139/68
--- NOTE | 2019-10-01 17:02 | NUR ---
ALERT AND ORIENTED X4. UP WITH 1 ASSIST, GAIT BELT AND WALKER. CONTINENT OF URINE TODAY USING URINAL. REMAINS ON 1500ML FLUID RESTRICTION, HEART HEALTHY AND DIABETIC DIET. DENIES C/O PAIN WHEN ASKED. LUNG SOUNDS DIMINSHED. O2 SAT REMAINS IN 90'S ON ROOM AIR. CALL LIGHT WITHIN REACH. BED ALARM AND CHAIR ALARM USED.
[2019-10-01 20:00] VITALS: BP 121/78; BP 125/62
--- NOTE | 2019-10-02 05:33 | NUR ---
ASSUMED CARES AT 1920. ALERT AND ORIENTED. PLEASANT. MIN ASSIST WITH GAIT BELT AND WALKER. USES URINAL. WEARS PULLUPS. HAD STRESS INCONTINENCE AND PULLUPS CHANGED. SLEPT WELL. CALL LIGHT IN REACH AND BED ALARM ON.
[2019-10-02 07:42] VITALS: BP 136/71
--- NOTE | 2019-10-02 18:23 | NUR ---
ALERT AND ORIENTED X4. UP WITH 1 ASSIST, GAIT BELT AND WALKER. DENIES PAIN WHEN ASKED. INCONTINENT AT TIMES AND WEARS BRIEFS. USES URINAL. REMAINS ON FLUID RESTRICTION OF 1500ML PER 24 HOURS. CALL LIGHT WITHIN REACH. BED ALARM AND CHAIR ALARM USED.
[2019-10-02 19:30] VITALS: BP 111/57
--- NOTE | 2019-10-03 05:36 | NUR ---
ASSUMED CARES AT 1920. ALERT AND ORIENTED. DENIED ANY PAIN OR SOA. MIN ASSIST WITH GAIT BELT AND WALKER. USED URINAL AND NURSING EMPTIED. PULLUPS. STRESS INCONTINENCE. REDNESS TO GROIN AND BUTTOCKS. BARRIER CREAM APPLIED. SLEPT WELL. CALL LIGHT IN REACH AND BED ALARM ON.
[2019-10-03 07:53] VITALS: BP 114/64
--- NOTE | 2019-10-03 16:32 | NUR ---
PATIENT UP WITH THERAPYS TODAY. UP TO CHAIR AND WHEELCHAIR FOR MEALS. UP WITH SBA AND USE OF WALKER AND GAIT BELT. VOIDING PER URINAL. NO COMPLAINTS OF PAIN. HERE THIS AM FOR HOME TRANINING.
[2019-10-03 20:00] VITALS: BP 106/54
--- NOTE | 2019-10-04 05:15 | NUR ---
ASSUMED CARES AT 1920. ALERT AND ORIENTED. PLEASANT. DENIED ANY PAIN OR SOA. MIN ASSIST WITH GAIT BELT AND WALKER. USES URINAL BUT HAS STRESS INCONTINENCE. PULLUPS. BARRIER CREAM TO GROIN REDNESS. CALL LIGHT IN REACH AND BED ALARM ON.
--- NOTE | 2019-10-04 05:46 | NUR ---
SLEEPING SINCE 2200 & SLEPT GOOD ALL NIGHT.TAKES ALL MEDS W/ DIET PEPSI.AWAKE ONCE @ 0300 FOR BRP W/ SBA 2ND TIME.
[2019-10-04 07:20] VITALS: BP 129/60
--- NOTE | 2019-10-04 16:29 | NUR ---
ASSUMMED CARE OF PT AT 0730, PT ALERT AND ORIENTED, PT TRANSFERS WITH MIN/SBA GB WALKER, PT DENIES PAIN, MAINTAINING FLUID RESTRICTION, PT STANDS TO VOID IN URINAL, BUT ALSO INCONTINENT OF LARGE AMOUNT OF URINE IN BRIEF, GROIN AREA REDDENED, BARRIER OINTMENT APPLIED, PARTICPATED IN ALL THERAPIES, HOURLY ROUNDING COMPLETED, ASSESSMENT COMPLETE.
[2019-10-04 20:00] VITALS: BP 132/75
--- NOTE | 2019-10-04 20:00 | NUR ---
SITTING UP IN WHEELCHAIR WATCHING TV. DENIES DISCOMFORT. CALL LIGHT AND URINAL WITHIN REACH. SNACK PROVIDED.
--- NOTE | 2019-10-05 04:55 | NUR ---
WENT TO BED ABOUT 2240. INCONTINENT OF URINE X ONE. SULY CARE GIVEN. COMPLIANT WITH FLUID RESTRICTION. PATIENT TO BE DISCHARGED TO HOME TODAY. HOURLY ROUNDING IN PROGRESS.
[2019-10-05 08:00] VITALS: BP 137/63
[2019-10-05 08:12] VITALS: BP 137/63
[2019-10-05] MEDS ORDERED: LIPITOR 40 MG T40 M1 PO (09:34)
[2019-10-05] MEDS ORDERED: SPIRONOLACTONE25 MG PO (09:34)
[2019-10-05] MEDS ORDERED: BENAZEPRIL HCL5 MG PO (09:34)
[2019-10-05] MEDS ORDERED: VITAMIN B-12500 MCG PO (09:35)
[2019-10-05] MEDS ORDERED: TOPROL XL50 MG PO (09:35)
[2019-10-05] MEDS ORDERED: DEMADEX20 MG PO (09:35)
[2019-10-05] MEDS ORDERED: ADULT LOW DOSE81 MG PO (09:35)
[2019-10-05] MEDS ORDERED: METFORMIN HCL500 MG PO (09:35)
[2019-10-05] MEDS ORDERED: GLUCOTROL5 MG PO (09:35)
[2019-10-05 12:51] VITALS: BP 137/63
[2019-10-05 13:35] VITALS: BP 137/63
--- NOTE | 2019-10-05 14:28 | NUR ---
Pt to dc home with today. Team conference held and SW and Dr Lyle met with pt to review team conference summary. Pt and pt in agreement with plan for home with HH services to follow; SW discussed HH options, pt/pt preference for [facility] and SW faxed referral and dc orders/med list to intake of [facility]. Pt has needed DME at home already. Pt to provide ride home.
--- NOTE | 2019-10-05 14:32 | NUR ---
AM ASSESSMENT AND VITAL SIGNS COMPLETED DOCUMENTED. PT HAS MET HIS DISCHARGE GOAL. DISCHARGE INSTRUCTIONS PROVIDED TO PT AND HIS . PT TRANSPORTED TO EXIT VIA WHEELCHAIR, DISCHARGED HOME IN STABLE CONDITION.
== END 2019-10-05 14:36 | disposition home health service (06) | DRG 291 ==
LOC: M.REH 14:12
PROVIDERS: Family Medicine; ADMIT Physical Medicine & Rehabilitation
DX: I13.0 Hypertensive heart and chronic kidney disease with heart failure and stage 1 through stage 4 chronic kidney disease, or unspecified chronic kidney disease (principal); I50.33 Acute on chronic diastolic (congestive) heart failure; J96.01 Acute respiratory failure with hypoxia; N17.9 Acute kidney failure, unspecified; R53.81 Other malaise; E11.51 Type 2 diabetes mellitus with diabetic peripheral angiopathy without gangrene; I25.10 Atherosclerotic heart disease of native coronary artery without angina pectoris; D64.9 Anemia, unspecified; E66.01 Morbid (severe) obesity due to excess calories; N18.3 Chronic kidney disease, stage 3 (moderate); E11.22 Type 2 diabetes mellitus with diabetic chronic kidney disease; Z87.01 Personal history of pneumonia (recurrent); Z79.899 Other long term (current) drug therapy; Z79.82 Long term (current) use of aspirin; Z79.84 Long term (current) use of oral hypoglycemic drugs; Z68.36 Body mass index [BMI] 36.0-36.9, adult

== ENCOUNTER 2021-06-09 22:38 | Inpatient (IN) | payer MEDICARE, OTHER ==
[~2021-06-09] VITALS: Ht 180.3 cm; Wt 127.9 kg
[~2021-06-09 22:38] MED LIST changes: +ADULT LOW DOSE81 MG PO; +BENAZEPRIL HCL5 MG PO; +LIPITOR 40 MG T40 M1 PO; +TOPROL XL50 MG PO; +VITAMIN B-12500 MCG PO
[2021-06-09 22:50] VITALS: BP 142/94
[2021-06-09] MEDS ORDERED: PLAVIX 75 MG TA75 MG PO (22:54)
[2021-06-09] MEDS ORDERED: PROTONIX40 M3 PO (22:54)
[2021-06-09] MEDS ORDERED: COZAAR 25 MG TA25 M1 PO (22:55)
[2021-06-09 23:25] LABS: ABSOLUTE BASOPHILS 0.1 thou/uL (0.0-0.2); ABSOLUTE EOSINOPHILS 0.4 thou/uL (0.0-0.7); ABSOLUTE LYMPHOCYTES 1.4 thou/uL (0.8-5.3); ABSOLUTE MONOCYTES 0.8 thou/uL (0.0-1.2); ABSOLUTE NEUTROPHILS 9.8 thou/uL (1.6-8.1); BASOPHILS 0.6 %; EOSINOPHILS 3.3 %; HEMATOCRIT 32.5 % (42.0-52.0); HEMOGLOBIN 10.3 gm/dL (14.0-18.0); LYMPHOCYTES 11.1 %; MCH 27.1 pg (26.0-34.0); MCHC 31.7 g/dL (28.0-37.0); MCV 85.6 fL (80.0-100.0); MONOCYTES 6.3 %; MPV 7.8 fl. (7.2-11.1); NUCLEATED RBCS 0 /100WBC; PLATELET COUNT* 305 thou/uL (150-400); POLYS 78.7 %; RDW-CV 17.1 % (10.5-14.5); WBC 12.5 thou/uL (4.0-11.0)
[2021-06-09 23:39] LABS: CALCIUM 8.9 mg/dL (8.5-10.1); CREATININE 1.4 mg/dL (0.6-1.3); POTASSIUM 4.3 mmol/L (3.5-5.1)
[2021-06-09 23:49] LABS: ALBUMIN 2.7 g/dL (3.4-5.0); MAGNESIUM 1.9 mg/dL (1.8-2.4); TOTAL BILIRUBIN 0.5 mg/dL (<0.1-1.0); TOTAL PROTEIN 7.5 g/dL (6.4-8.2)
[2021-06-10 00:41] LABS: URINE BILIRUBIN NEGATIVE (Negative); URINE BLOOD 2+ (Negative); URINE CLARITY CLEAR; URINE COLOR YELLOW; URINE GLUCOSE-RANDOM NEGATIVE (Negative); URINE KETONES NEGATIVE (Negative); URINE LEUKOCYTES-REFLEX NEGATIVE (Negative); URINE NITRITE-REFLEX NEGATIVE (Negative); URINE PROTEIN 3+ (Negative); URINE SPECIFIC GRAVITY 1.025 (1.005-1.030); URINE UROBILINOGEN 0.2 E.U./dl (0.2-1.0)
[2021-06-10 02:05] LABS: HYALINE CASTS 0-3 Few /LPF (None Seen); MUCUS 0-3 Light strn/LPF (None Seen); SQUAMOUS 0-3 Few /LPF (0-3)
[2021-06-10 02:06] LABS: BACTERIA-REFLEX 1-9 Few /HPF (None Seen); CRYSTALS None Seen /LPF (None Seen); URINE RBC 0-2 Rare /HPF (0-2); URINE WBC-REFLEX 0-5 Rare /HPF (0-5)
--- NOTE | 2021-06-10 10:55 | EKG ---
[place] [address] ELECTROCARDIOGRAM REPORT Name: VÍCTOR MCFADDEN Room: [place] [address] ADM IN ..#: [id number] Admission: 06/10/21 Attend Phys: Xiang Silvestre Discharge: Date of : 49 Date of Service: 06/09/21 2300 Report #: [id number] THIS REPORT FOR: //name// [facility] ED Test Date: 2021-06-09 Test Time: 23:00:26 Pat Name: VÍCTOR MCFADDEN Department: Room: [facility] Gender: M Follow Up Specialist: GEORGETTE : 1945 Requested By: Waleska Everett Order Number: [id number] MD: Jerzy Hussein Measurements Intervals [place] Rate: 86 P: -27 MI: 239 QRS: -44 QRSD: 96 T: 53 QT: 382 QTc: 457 Interpretive Statements Sinus rhythm Prolonged MI interval Inferior infarct, old Anterior infarct, old Baseline wander in lead(s) V6 Compared to ECG 09/14/2019 11:17:08 First degree AV block now present Atrial premature complex(es) no longer present Myocardial infarct finding still present Electronically Signed On 06-10-2021 10:55:32 CDT by Jerzy Hussein [email or web address] <ELECTRONICALLY SIGNED> By: Jerzy Hussein MD, [facility] 06/10/21 1055 99 99 Jerzy Hussein MD, [facility] /EPI
[2021-06-10 10:59] VITALS: BP 182/91
[2021-06-10 11:08] VITALS: BP 182/91
[2021-06-10 12:30] VITALS: BP 155/65
[2021-06-10 12:32] VITALS: BP 155/65
--- NOTE | 2021-06-10 14:03 | 2DMMODE ---
[place] [address] 2 D/M-MODE ECHOCARDIOGRAM Name: VÍCTOR MCFADDEN Clark Room: [place] [address] ADM IN Nela#: [id number] Admission: 06/10/21 Attend Phys: Xiang Silvestre Discharge: Date of : 49 Date of Service: 06/10/21 1403 Report #: [id number] THIS REPORT FOR: cc: Erica Eden MD, Katrina MD Blick, David R. MD [facility] ~ APPROVED REPORT Study performed: 06/10/2021 11:53:40 EXAM: Comprehensive 2D, Doppler, and color-flow Echocardiogram Patient Location: In-Patient Room #: ER Status: routine BSA: 2.52 HR: 75 bpm BP: 162/68 mmHg Rhythm: NSR Other Information Study Quality: Good Indications Dyspnea 2D Dimensions IVSd: 16.75 (7-11mm) LVOT Diam: 22.16 (18-24mm) LVDd: 55.79 mm PWd: 12.86 (7-11mm) Ascending Ao: 37.85 (22-36mm) LVDs: 42.65 (25-40mm) Aortic Root: 36.08 mm Volumes Left Atrial Volume (Systole) LA ESV Index: 38.10 mL/m2 Aortic Valve AoV Peak Obi.: 1.45 m/s AO Peak Gr.: 8.46 mmHg LVOT Max P.08 mmHg AO Mean Gr.: 4.82 mmHg LVOT Mean P.41 mmHg LVOT Max V: 0.88 m/s AO V2 VTI: 26.52 cm LVOT Mean V: 0.54 m/s BREANN (VTI): 2.37 cm2 LVOT V1 VTI: 16.31 [place] [address] 2 D/M-MODE ECHOCARDIOGRAM Name: VÍCTOR MCFADDEN Room: [address] IN [facility].#: [id number] Admission: 06/10/21 Attend Phys: Xiang Silvestre Discharge: Date of : 49 Date of Service: 06/10/21 1403 Report #: [id number] Mitral Valve E/A Ratio: 1.64 MV Decel. Time: 130.53 ms MV E Max Obi.: 1.11 m/s MV PHT: 37.85 ms MVA (PHT): 5.81 cm2 TDI E/Lateral E': 15.86 E/Medial E': 18.50 Medial E' Obi.: 0.06 m/s Lateral E' Obi.: 0.07 m/s Pulmonary Valve PV Peak Obi.: 0.80 m/s PV Peak Gr.: 2.55 mmHg Tricuspid Valve RAP Estimate: 15.00 mmHg TR Peak Gr.: 48.02 mmHg RVSP: 63.00 mmHg PA Pressure: 63.00 mmHg Left Ventricle Left ventricle is mildly dilated. akinesis of the mid and distal anteroseptal wall and apex Mild concentric left ventricular hypertrophy. Left ventricular systolic function is severely decreased. LVEF is 25-30%. Grade IV - fixed restrictive diastolic dysfunction. Right Ventricle The right ventricle is normal size. The right ventricular systolic function is normal. Atria Left atrium is mildly dilated. The right atrium size is normal. Aortic Valve Mild aortic valve sclerosis. No aortic regurgitation is present. There is no aortic valvular stenosis. Mitral Valve The mitral valve is normal in structure. Mild mitral regurgitation. No evidence of mitral valve stenosis. Tricuspid Valve The tricuspid valve is normal in structure. Mild tricuspid regurgitation. estimated pa pressure 50 [place] [address] 2 D/M-MODE ECHOCARDIOGRAM Name: VÍCTOR MCFADDEN Room: [address] IN [facility]#: [id number] Admission: 06/10/21 Attend Phys: Xinag Silvestre Discharge: Date of : 49 Date of Service: 06/10/21 1403 Report #: [id number] Pulmonic Valve The pulmonary valve is normal in structure. Trace pulmonic regurgitation. Great Vessels Aortic root is mildly dilated. IVC is dilated and collapses <50% with inspiration. Pericardium There is no pericardial effusion. <Conclusion> akinesis of the mid and distal anteroseptal wall and apex Left ventricle is mildly dilated. LVEF is 25-30%. Left atrium is mildly dilated. Mild aortic valve sclerosis. Mild mitral regurgitation. Mild tricuspid regurgitation. estimated pa pressure 50 mm Hg Mild concentric left ventricular hypertrophy. <ELECTRONICALLY SIGNED> By: Jerzy Hussein MD, [facility] 06/10/21 1403 140 140 Jerzy Hussein MD, FACC /INF
--- NOTE | 2021-06-10 14:05 | NUR ---
CM COMPLETED INITIAL ASSESSMENT WITH PT. PT INDICATED HE LIVES WITH AND HIS DTR AND TESSY LIVE IN THE HOUS NEXT DOOR. PT INDICATED HE HAS WALKER AND WC, BUT MAINLY USES WC D/T LEG AMPUTEE. PT IS 1X ASSIST W/ADLS, USUSALLY RECEIVES ASSISTANCE FROM OR TESSY. PT IS CURRENT WITH [employer] AND [facility], PT DOESNT RECALL WHICH ONE. CM [facility] VM WITH Justin.[facility] [address] [facility] ([phone]) TO GET ADMITTING DX AND INFORM THEM OF PT'S HOSPITALIZATION. CM TO CONT TO FOLLOW.
[2021-06-10 16:20] VITALS: BP 139/77
[2021-06-11 00:16] VITALS: BP 132/69
--- NOTE | 2021-06-11 03:13 | NUR ---
ASSUMED CARE OF PT AT 1900. PT IS ALERT AND ORIENTED X'S 4. VSS. PERRLA. RB. PT IS ON 2 LITERS O2. PT HAS 4 PLUS EDEMA. PT IS IN SINUS RYTHM ON THE TELEMETRY. PT IS RESTING COMFORTABLY IN BED. RESPIRATIONS ARE EVEN AND NONLABORED. WILL CONTINUE TO MONITOR PT.
[2021-06-11 04:42] VITALS: BP 137/70
[2021-06-11 05:11] LABS: ANION GAP 9 mmol/L (7-16); BUN 34 mg/dL (7-18); CALCIUM 8.5 mg/dL (8.5-10.1); CHLORIDE 109 mmol/L (98-107); CHOLESTEROL 103 mg/dL (<200); CO2 27 mmol/L (21-32); CREATININE 1.5 mg/dL (0.6-1.3); GLUCOSE 141 mg/dL (70-99); HDL CHOLESTEROL 40 mg/dL (>40); LDL CHOLESTEROL 53 mg/dL (<100); POTASSIUM 3.9 mmol/L (3.5-5.1); SODIUM 145 mmol/L (136-145); TC:HDL 2.6 Ratio (Not establshd); TRIGLYCERIDE 53 mg/dL (<150); VLDL 11 mg/dL (<40)
[2021-06-11 05:17] LABS: SERUM ASSESSMENT Clear
[2021-06-11 08:02] VITALS: BP 123/87
--- NOTE | 2021-06-11 11:11 | CON ---
[address] [address] CONSULTATION Name: VÍCTOR MCFADDEN Room: [address] IN [facility].R.#: [id number] Admission: 06/10/21 Attend Phys: Marie Edwards Discharge: Date of : 49 Report #: [id number] THIS REPORT FOR: cc: Erica Eden MD, Katrina MD Blick, David R. MD [facility] ~ cc: Erica Eden MD DATE OF CONSULTATION: 06/10/2021 CARDIOLOGY CONSULTATION HISTORY OF PRESENT ILLNESS: The patient is a 76-year-old white male whom I was asked to see in the Emergency Room today after he complained of chest pain. The patient had a previous stent placed 6 years ago at [facility]. He has a history of an ischemic cardiomyopathy. Recently he had increasing shortness of breath and edema. He denies any chest pain or syncope. He called EMS and was brought to [facility] and admitted. PAST MEDICAL AND SURGICAL HISTORY: He has had previous bowel resection, hernia repair, previous nonhealing ulcer and eventually underwent right agnmj-ppi-aaje amputation 2 years ago here at [facility]. He has a history of hypertension, diabetes, hyperlipidemia. CURRENT MEDICATIONS: Include aspirin, Lipitor, glipizide, metformin, metoprolol, torsemide. ALLERGIES: He has no known drug allergies. FAMILY HISTORY: Negative for heart disease. SOCIAL HISTORY: He is . He and his lives in [place], [place]. No smoking. Rarely drinks alcohol. REVIEW OF SYSTEMS: He is overweight, being 5 feet 11, 281 pounds. No history of stroke, asthma, liver disease, kidney disease, cancer, chronic skin condition, psychiatric illness. PHYSICAL EXAMINATION: GENERAL: Revealed obese elderly male who appears in no acute distress. VITAL SIGNS: Blood pressure 150/60, pulse 70, he is afebrile. HEENT: He was anicteric. Mucosa membranes are moist. NECK: Veins not appear distended. No carotid bruits. CHEST: Clear to auscultation. HEART: [place] [address] CONSULTATION Name: VÍCTOR MCFADDEN Clark Room: [address]#: [id number] Admission: 06/10/21 Attend Phys: Marie Edwards Discharge: Date of : 49 Report #: [id number] ABDOMEN: Obese. EXTREMITIES: Left lower extremity had 1+ edema. LABORATORY DATA: ECG showed sinus rhythm, left axis deviation, evidence of previous anterior infarction. IMPRESSION AND RECOMMENDATIONS: 1. Acute on chronic systolic heart failure. Recommend IV Lasix. 2. Hypertension. The patient is on beta luke and ARB. 3. Coronary artery disease. No recent angina. I would not recommend cardiac catheterization or treadmill test at this time. 4. Hyperlipidemia. The patient is on a statin drug. 5. Morbid obesity. 6. Previous lfxpl-jng-eoia amputation for nonhealing ulcer. 7. Chronic kidney disease. <ELECTRONICALLY SIGNED> By: Jerzy Hussein MD, FACC 06/11/21 1111 1150 [id number] Hussein MD, FACC /nt
--- NOTE | 2021-06-11 11:11 | CON ---
[address] [address] CONSULTATION Name: VÍCTOR MCFADDEN Room: [address] IN M.R.#: [id number] Admission: 06/10/21 Attend Phys: Marie Edwards Discharge: Date of : 49 Report #: [id number] THIS REPORT FOR: cc: Erica Eden MD, Katrina MD Blick, David R. MD [facility] ~ cc: Erica Eden MD DATE OF CONSULTATION: 06/10/2021 CARDIOLOGY CONSULTATION HISTORY OF PRESENT ILLNESS: The patient is a 76-year-old white male who I was asked to see in the hospital today after he complained to being short of breath. The patient has an extensive past medical history. He had a stent placed at [facility] approximately 6 years ago. Recently, he has been followed by my partner, Dr. Canela. He has a history of systolic heart failure and has been on Entresto in the past. Recently, the patient had increasing shortness of breath and edema. He denies any chest pain, palpitation, syncope, fever, or cough. He called the EMS and brought to the hospital yesterday and admitted for further evaluation and treatment. PAST MEDICAL HISTORY: He has had bowel resection, hernia repair. He had a previous infection of his left toe and eventually required right ogwiv-iqo-lujm amputation here at [facility] 2 years ago. He has a history of hypertension, diabetes, hyperlipidemia. CURRENT MEDICATIONS: Include aspirin, Lipitor, glipizide, metformin, metoprolol, torsemide. ALLERGIES: He has no known drug allergies. FAMILY HISTORY: Negative for heart disease. SOCIAL HISTORY: He is . He and his live in [place], [place]. No smoking. Rarely drinks alcohol. REVIEW OF SYSTEMS: GENERAL: He is overweight being 5 feet 11 inches, 280 pounds. HEENT: He was anicteric. Conjunctivae are pink. Mucosa is moist. NECK: Neck vein is difficult to assess due to obesity. CHEST: Clear to auscultation. HEART: Regular rate and rhythm. ABDOMEN: Obese. EXTREMITIES: Left lower extremity had 1+ [place] [address] CONSULTATION Name: VÍCTOR MCFADDEN Clark Room: [address]#: [id number] Admission: 06/10/21 Attend Phys: Marie Edwards Discharge: Date of : 49 Report #: [id number] SKIN: Cool and dry. NEUROLOGIC: Nonfocal. IMAGING: ECG done last night showed a sinus rhythm, left axis deviation, previous anterior infarction with no acute ST-T wave changes noted. The patient actually had an echocardiogram done here in 2019 that showed ejection fraction 35% with left atrial enlargement, aortic sclerosis, mild mitral regurgitation and moderate pulmonary hypertension. Nuclear stress test was done here in 2018 because of his previous history of stent and the nuclear stress test in 2018 showed no evidence of ischemia. There was a defect involving the anteroapical segment, but no reversibility. This is felt to be fixed consistent with previous infarction. Ejection fraction of 27%. He had a portable chest x-ray done last night that showed cardiomegaly, vascular congestion, small effusions. He actually had a CT scan of the chest using a PE protocol that showed left effusion, vascular congestion. LABORATORY DATA: His lab work; BUN 33, creatinine 1.4. His troponin was minimally elevated at 0.12. His white blood cell count 12.5, hemoglobin 10.3. His COVID antigen stat test was negative. IMPRESSION AND RECOMMENDATION: DICTATION ENDS HERE. <ELECTRONICALLY SIGNED> By: Jerzy Hussein MD, FACC 06/11/21 1111 1145 [id number] Hussein MD, FACC /nt
[2021-06-11 12:00] VITALS: BP 158/68
--- NOTE | 2021-06-11 15:03 | NUR ---
Anticipate dc in a few days. Goal is home at dc, resume [facility].
[2021-06-11 16:00] VITALS: BP 145/54
[2021-06-11 20:34] VITALS: BP 138/64
[2021-06-12 00:24] VITALS: BP 136/61
[2021-06-12 04:24] VITALS: BP 146/78
--- NOTE | 2021-06-12 06:40 | NUR ---
PT IS ABLE TO COMMUNICATE HIS NEEDS TO STAFF EFFECTIVELY. HE HAS DENIED THE NEED FOR PAIN MEDICATION UP TO THIS TIME. PT HAS A RT BKA.
[2021-06-12 12:00] VITALS: BP 148/71
--- NOTE | 2021-06-12 13:09 | NUR ---
Anticipate dc in 1-2 days. Cards following. OT to see. Goal is to return home with [facility]
[2021-06-12 16:00] VITALS: BP 156/75
[2021-06-12 19:45] VITALS: BP 139/69
[2021-06-13] VITALS: BP 148/69
[2021-06-13 04:00] VITALS: BP 161/87
[2021-06-13 04:25] LABS: CALCIUM 8.8 mg/dL (8.5-10.1); CREATININE 1.6 mg/dL (0.6-1.3); POTASSIUM 4.4 mmol/L (3.5-5.1)
--- NOTE | 2021-06-13 05:10 | NUR ---
PT A&O X 4, FORGETFUL AT TIMES. ON 2L O2. MEDS GIVEN ORDERED. NO C/O PAIN. PT INCONTINENT. TURNS, HOURLY ROUNDINGS DONE. CALL LIGHT WITHIN REACH. WILL CONTINUE TO MONITOR.
[2021-06-13 09:57] LABS: CREATININE 1.6 mg/dL (0.6-1.3); POTASSIUM 4.3 mmol/L (3.5-5.1)
[2021-06-13 10:00] LABS: MAGNESIUM 1.9 mg/dL (1.8-2.4)
--- NOTE | 2021-06-13 13:01 | NUR ---
PT evaluated, anticipate that Pt is back to baseline. Cards following, continue diuresing. Anticipate dc in a few days to home with [facility].
[2021-06-13 13:25] VITALS: BP 130/62
--- NOTE | 2021-06-13 15:23 | NUR ---
I AGREE WITH ANTHONY WALKER'S DOCUMENTATION FOR TODAY. ARIANA VILLATORO, BRENDAT
[2021-06-13 17:23] VITALS: BP 153/71
[2021-06-13 19:45] VITALS: BP 147/68
[2021-06-14] VITALS (7 sets, daily range): BP systolic 131–155; BP diastolic 58–103
--- NOTE | 2021-06-14 05:35 | NUR ---
PT A&O X 4. ON 2L O2. NO C/O PAIN. PT INCONTINENT OF BLADDER, NEEDED COMPLETE BED CHANGE ALL THE TIME. REDNESS, SKIN TEAR NOTED ON SULY AREA. CONDOM CATH APPLIED. TURNS, HOURLY ROUNDINGS DONE. CALL LIGHT WITHIN REACH. WILL CONTINUE TO MONITOR.
[2021-06-14] MEDS ORDERED: SPIRONOLACTONE25 MG PO (08:48)
[2021-06-14] MEDS ORDERED: METOLAZONE 5 MG5 MG PO (08:48)
[2021-06-14] MEDS ORDERED: HUMALOG100 UNIT/1 SUBQ (08:49)
--- NOTE | 2021-06-14 14:52 | NUR ---
Pt discharged home today, faxed Hh orders to [facility]
== END 2021-06-14 16:00 | disposition home health service (06) | DRG 291 ==
LOC: M.ERS 22:38 → M.TBA-ER 06-10 05:29 → M.2W 06-10 10:39
PROVIDERS: Emergency Medicine; Internal Medicine Cardiovascular Disease; ADMIT Internal Medicine; ATTEND Internal Medicine
DX: I13.0 Hypertensive heart and chronic kidney disease with heart failure and stage 1 through stage 4 chronic kidney disease, or unspecified chronic kidney disease (principal); N17.0 Acute kidney failure with tubular necrosis; R65.11 Systemic inflammatory response syndrome (SIRS) of non-infectious origin with acute organ dysfunction; I50.43 Acute on chronic combined systolic (congestive) and diastolic (congestive) heart failure; Z68.45 Body mass index [BMI] 70 or greater, adult; Z20.822 Contact with and (suspected) exposure to COVID-19; E11.51 Type 2 diabetes mellitus with diabetic peripheral angiopathy without gangrene; I25.10 Atherosclerotic heart disease of native coronary artery without angina pectoris; I25.5 Ischemic cardiomyopathy; E66.01 Morbid (severe) obesity due to excess calories; N18.9 Chronic kidney disease, unspecified; E11.22 Type 2 diabetes mellitus with diabetic chronic kidney disease; E78.5 Hyperlipidemia, unspecified; G47.33 Obstructive sleep apnea (adult) (pediatric); D64.9 Anemia, unspecified; Z74.01 Bed confinement status; Z79.899 Other long term (current) drug therapy; Z79.82 Long term (current) use of aspirin; Z79.84 Long term (current) use of oral hypoglycemic drugs; I25.2 Old myocardial infarction; Z87.891 Personal history of nicotine dependence; Z89.611 Acquired absence of right leg above knee; Z89.511 Acquired absence of right leg below knee